=== PATIENT | female | born 1975 | race Hispanic/Latino ===

== ENCOUNTER 2019-07-30 09:57 | Outpatient (CLI) | payer OTHER ==
--- NOTE | 2019-07-30 10:21 | RAD ---
XR Hip Rt 2-3 View HISTORY: Right hip pain FINDINGS: No fracture, bone destruction or dislocation is identified.
== END 2019-07-30 09:58 | disposition home or self-care (01) ==
LOC: BICRAD 09:57
PROVIDERS: ATTEND Family Medicine
DX: M25.551 Pain in right hip (principal)